=== PATIENT | female | born 1950 | race Caucasian/White ===

== ENCOUNTER 2018-01-18 11:09 | Emergency (ER) | payer MEDICARE, BC ==
--- NOTE | 2018-01-18 12:07 | EDM.PDOCBH ---
ED HPI GENERAL MEDICAL PROBLEM - General Chief Complaint: Neurological Problem Stated Complaint: FALL VIA [place]TH Time Seen by Provider: 01/18/18 11:20 Source of Information: Reports: EMS, Family History Limitations: Reports: No Limitations - History of Present Illness INITIAL COMMENTS - FREE TEXT/NARRATIVE: Pt arrived after a ffall at home. She seemed a little vague just ahead of the fall. She was out on the deck and she fell straight back and hit her head. She ended up with a laceration. She did bnot respond norm,ally after the fall. She is now responding to pain. Onset: Today, Sudden Duration: Minutes: Location: Reports: Head Associated Symptoms: Reports: No Other Symptoms - Related Data Allergies Allergy/AdvReac Type Severity Reaction Status Date / Time No Known Allergies Allergy Verified 01/18/18 11:33 Home Meds: Home Meds NK [No Known Home Meds] 10/13/15 [History] Past Medical History [employer] History: Reports: Polycystic Ovaries, Neurological History: Reports: Brain Injury - Infectious Disease History Infectious Disease History: Reports: Chicken Pox - Past Surgical History Neurological Surgical History: Reports: Lumbar Spine Social & Family History - Family History Family Medical History: Unobtainable - Tobacco Use Smoking Status *Q: Unknown Ever Smoked - Living Situation & Occupation Living situation: Reports: , with Spouse Occupation: Retired ED ROS GENERAL - Review of Systems Review Of Systems: See Below Constitutional: Reports: Other (pt is not responding as uaual) HEENT: Reports: No Symptoms Respiratory: Reports: No Symptoms Cardiovascular: Reports: No Symptoms Endocrine: Reports: No Symptoms GI/Abdominal: Reports: No Symptoms : Reports: No Symptoms Musculoskeletal: Reports: No Symptoms Skin: Reports: No Symptoms ED EXAM, BEHAVIORAL HEALTH - Physical Exam Exam: See Below Text/Narrative:: pt has a hematoma on the back of her head and has a laceration in this area. 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 She was slow to respond out on the deck. She then fell straight backward. She did not rrspond normally after that. She is responding to pain at this time and saying some words. Exam Limited By: Altered Mental Status General Appearance: Alert, Other (not responding normally. pupils are equal and are reactive. ) Ears: Normal TMs Nose: Normal Inspection Throat/Mouth: Normal Inspection Head: Other (pt has a laceration on the back of her head. ) Neck: Other (pt is not able to tell tenderness will procede with a scan ) Respiratory/Chest: No Respiratory Distress Cardiovascular: Regular Rate, Rhythm GI/Abdominal: Soft, Non-Tender (Female) Exam: Deferred Rectal (Female) Exam: Deferred Back Exam: Normal Inspection Extremities: Normal Inspection Neurological: Alert, Other ( disoriented. ) Psychiatric: Alert COURSE, BEHAVIORAL HEALTH COMP - Course Vital Signs: Last Vital Signs Temp 36.5 C 01/18/18 11:21 Pulse 68 01/18/18 12:24 Resp 18 01/18/18 11:21 BP 190/85 H 01/18/18 12:24 Pulse Ox 98 01/18/18 11:21 Orders, Labs, Meds: Active Orders 24 hr Category Date Time Status EKG Documentation Completion [RC] ASDIRECTED Care 01/18/18 11:44 Active Cervical Spine wo Cont [CT] Stat Exams 01/18/18 11:54 Taken Head wo Cont [CT] Stat Exams 01/18/18 11:25 Taken UA W/MICROSCOPIC [URIN] Urgent Lab 01/18/18 11:25 Ordered EKG 12 Lead [EK] Routine Ther 01/18/18 11:44 Ordered Laboratory Tests 01/18/18 01/18/18 01/18/18 Range/Units 11:41 11:41 11:44 WBC 8.3 (4.5-11.0) K/uL RBC 5.27 (3.30-5.50) M/uL Hgb 15.1 H (12.0-15.0) g/dL Hct 44.1 (36.0-48.0) % MCV 84 (80-98) fL MCH 29 (27-31) pg MCHC 34 (32-36) % Plt Count 447 H (150-400) K/uL Neut % (Auto) 75 H (36-66) % Lymph % (Auto) 17 L (24-44) % Petroleum % (Auto) 5 (2-6) % Eos % (Auto) 2 (2-4) % Baso % (Auto) 0 (0-1) % APTT 28.6 (27.0-36.0) sec Sodium 136 L (140-148) mmol/L Potassium 3.9 (3.6-5.2) mmol/L Chloride 102 (100-108) mmol/L Carbon Dioxide 23 (21-32) mmol/L Anion Gap 14.9 H (5.0-14.0) mmol/L BUN 18 (7-18) mg/dL Creatinine 1.1 H (0.6-1.0) mg/dL Est Cr Clr Drug Dosing 34.67 mL/min Estimated GFR (MDRD) 49 L (>60) Glucose 121 H (74-106) mg/dL Calcium 9.2 (8.5-10.1) mg/dL Total Bilirubin 0.8 D (0.2-1.0) mg/dL AST 25 (15-37) U/L ALT 30 (12-78) U/L Alkaline Phosphatase 106 (46-116) U/L Total Protein 7.2 (6.4-8.2) g/dL Albumin 3.7 (3.4-5.0) g/dL Globulin 3.5 (2.3-3.5) g/dL Albumin/Globulin Ratio 1.1 L (1.2-2.2) Medications Discontinued Medications Generic Name Dose Route Start Last Admin Trade Name Freq PRN Reason Stop Dose Admin Bacitracin 1 dose 01/18/18 12:47 Bacitracin Oint 1 Gm TOP 01/18/18 12:48 ONETIME ONE Labetalol HCl 20 mg 01/18/18 11:59 01/18/18 12:24 Normodyne IVPUSH 01/18/18 12:00 20 mg ONETIME ONE Administration Protocol Lidocaine HCl 5 ml 01/18/18 11:45 Xylocaine-Mpf 1% INJECT 01/18/18 11:46 ONETIME ONE Lidocaine HCl 20 ml 01/18/18 11:46 01/18/18 12:39 Xylocaine 1% INJECT 01/18/18 11:47 20 ml ONETIME ONE Administration Medical Clearance: 01/18/18 12:27 cat scan reveals the old trauma. She does have a mixed bleed on the left including a subdural bleed and a subarachnoid bleed. 01/18/18 12:28pt has 01/18/18 12:29 speech at this time but is not answering appropiately. She is responding to pain. is thinking about her being transfered to [facility]. 01/18/18 12:30 01/18/18 12:50 The scalp laceration was cleansed well and the hair was clipped around it. The wound was infiltrated with lidocaine and closed tightly with 3-0 ethilon. a pressure dressing will be applied. Pt will be transfered to [facility] in [facility]. Departure - Departure Time of Disposition: 13:05 Disposition: DC/Tfer to Acute Hospital 02 Condition: Fair Clinical Impression: Subdural hematoma, Subarachnoid hemorrhage, Cerebral parenchymal hemorrhage - Discharge Information Referrals: PCP,None [Primary Care Provider] - Forms: ED Department Discharge Care Plan Goals: transfer to [facility]. - My Orders Last 24 Hours: My Active Orders 01/18/18 11:25 Head wo Cont [CT] Stat UA W/MICROSCOPIC [URIN] Urgent 01/18/18 11:44 EKG Documentation Completion [RC] ASDIRECTED EKG 12 Lead [EK] Routine 01/18/18 11:54 Cervical Spine wo Cont [CT] Stat - Assessment/Plan Last 24 Hours: My Active Orders 01/18/18 11:25 Head wo Cont [CT] Stat UA W/MICROSCOPIC [URIN] Urgent 01/18/18 11:44 EKG Documentation Completion [RC] ASDIRECTED EKG 12 Lead [EK] Routine 01/18/18 11:54 Cervical Spine wo Cont [CT] Stat
[2018-01-18] MEDS: Labetalol 100 MG/20 ML MDV IVPUSH ONE ×2 (12:24→13:12)
[2018-01-18] MEDS: Lidocaine 1% 20 ML MDV INJECT ONE (12:39)
[2018-01-18] MEDS: Bacitracin Oint 1 GM U/D Packet TOP ONE (13:12)
[2018-01-18 13:13] VITALS: BP 199/93
== END 2018-01-18 14:09 ==
LOC: JP.ED 11:09
DX: S06.5X9A Traumatic subdural hemorrhage with loss of consciousness of unspecified duration, initial encounter (principal); S06.6X9A Traumatic subarachnoid hemorrhage with loss of consciousness of unspecified duration, initial encounter; W19.XXXA Unspecified fall, initial encounter; Y92.009 Unspecified place in unspecified non-institutional (private) residence as the place of occurrence of the external cause
CPT/HCPCS: 12004; 36415; 70450; 72125; 80053; 85025; 85730; 93005; 93010; 99285; J3490